=== PATIENT | male | born 1995 | race Two or more races ===

== ENCOUNTER 2017-12-18 08:00 | Day surgery (SDC) | payer OTHER ==
[~2017-12-18] VITALS: Ht 185.4 cm; Wt 124.7 kg
[2017-12-18] VITALS (9 sets, daily range): BP systolic 129–180; BP diastolic 49–90
--- NOTE | 2017-12-18 07:54 | Pre-Procedure Note/Attestation ---
Pre-Procedure Note/Attestation Complete Prior to Procedure Planned Procedure: left Procedure Narrative: knee arthroscopy acl recontruction Indications for Procedure Pre-Operative Diagnosis: letf knee acl tear Attestation I attest that I discussed the nature of the procedure; its benefits; risks and complications; and alternatives (and the risks and benefits of such alternatives ), prior to the procedure, with the patient (or the patient's legal u.s. representative). I attest that, if there was a reasonable possibility of needing a blood transfusion, the patient (or the patient's legal u.s. representative) was given the [facility] standardized written summary, pursuant to the [place] Blood Safety Act ([place] Health and Safety Code # 1645, as amended). I attest that I re-evaluated the patient just prior to the surgery and that there has been no change in the patient's H&P, except as documented below: Kevin Hinson MD December 18, 2017 07:54
--- NOTE | 2017-12-18 07:55 | Operative Note - PDOC ---
Operative Note Operative Note Pre-op Diagnosis: letf knee acl tear Procedure: left arthroscopy Post-op Diagnosis: same as pre-op plus Operative Findings: consistent w/pre-op dx studies Anesthesia: general Specimen: none Complications: none Condition: stable Estimated Blood Loss: none Implant(s) used?: Yes Kevin Hinson MD December 18, 2017 07:55
[~2017-12-18 08:00] MED LIST: NKM; ceFAZolin 1gm in D5W 55ml IVP ONE; celeBREX 100mg Cap **SURGERY PATIENTS ONLY ORAL ONE; oxyCONTIN 20mg tab ORAL ONE
[2017-12-18] MEDS ORDERED: fentaNYL 100 mcg/2 mL IV ONE (08:17)
[2017-12-18] MEDS ORDERED: Midazolam 2mg/2ml Inj ONE (08:17)
[2017-12-18] MEDS ORDERED: Propofol 200mg/20ml IV ONE ×2 (08:17→08:43)
[2017-12-18] MEDS ORDERED: Lidocaine 1% MPF 10mg/ml 5ml ONE (08:19)
[2017-12-18] MEDS ORDERED: Ropivacaine 5mg/ml Vial 30ml INJ ONE (08:21)
[2017-12-18] MEDS ORDERED: oxyCONTIN 20mg tab ORAL ONE (08:32)
[2017-12-18] MEDS ORDERED: celeBREX 100mg Cap **SURGERY PATIENTS ONLY ORAL ONE (08:32)
[2017-12-18] MEDS ORDERED: Kenalog-40 1ml Vial ONE (08:40)
[2017-12-18] MEDS ORDERED: Lidocaine 1% 10mg/ml/Epi 0.005mg/ml 30ml vial INJ ONE (08:40)
[2017-12-18] MEDS ORDERED: Ketorolac 30mg Inj ONE (08:40)
[2017-12-18] MEDS ORDERED: Bupivacaine 0.25% Inj 30ml INJ ONE (08:41)
[2017-12-18] MEDS ORDERED: Bacitracin 50000 Units Vial ONE (08:41)
[2017-12-18] MEDS ORDERED: NS Irrig 1000ml ONE (09:00)
[2017-12-18] MEDS ORDERED: NS Irrig 4000ml IRRIG ONE (09:00)
[2017-12-18] MEDS ORDERED: LR 1000ml ONE (09:00)
[2017-12-18] MEDS ORDERED: Dexamethasone 4mg/ml vial ONE (09:00)
[2017-12-18] MEDS ORDERED: EPINEPHrine 1mg/1ml Amp ONE ×2 (09:11→09:13)
[2017-12-18] MEDS ORDERED: Morphine Sulfate PF 0 ML ONE (09:12)
[2017-12-18] MEDS ORDERED: LR 1000ml 1,000 ML IVLG SCH (10:05)
--- NOTE | 2017-12-18 10:05 | Anethesia Preoperative Eval ---
Anesthesia Pre-op PMH/ROS General Date of Evaluation: December 18, 2017 Time of Evaluation: 08:50 Anesthesiologist: Kerri ASA Score: ASA 2 Mallampati Score Class I : Soft palate, uvula, fauces, pillars visible Class II: Soft palate, uvula, fauces visible Class III: Soft palate, base of uvula visible Class IV: Only hard plate visible Mallampati Classification: Class II Surgeon: Sravan Diagnosis: L knee torn ACL Surgical Procedure: Arthrocopic ACL repair Anesthesia History: none Family History: no anesthesia problems Allergies: Coded Allergies: No Known Allergies (Unverified , 12/17/17) Medications: see eMAR Past Medical History Cardiovascular: Denies: HTN, CAD, NC, valve dz, arrhythmia, other Pulmonary: Denies: asthma, COPD, KAYLA, other Gastrointestinal/Genitourinary: Reports: GERD - mild; Denies: CRI, ESRD, other Neurologic/Psychiatric: Denies: dementia, CVA, depression/anxiety, TIA, other Endocrine: Denies: DM, hypothyroidism, steroids, other HEENT: Denies: cataract (L), cataract (R), glaucoma, [place] (L), [place] (R), other Hematology/Immune: Denies: anemia, DVT, bleeding disorder, other Musculoskeletal/Integumentary: Denies: OA, RA, DJD, DDD, edema, other Other: obesity PMH Narrative: as above PSxH Narrative: none Anesthesia Pre-op Phys. Exam Physician Exam Last Vital Signs Date Time Temp Pulse Resp B/P (MAP) Pulse Ox O2 Delivery O2 Flow Rate FiO2 12/18/17 08:41 97.7 86 20 141/90 99 Room Air 97.7 Constitutional: NAD Neurologic: CN 2-12 intact Cardiovascular: RRR, no M/R/G Respiratory: CTA Gastrointestinal: S/NT/ND Airway Exam Mallampati Score: Class II MO: full Neck: flexible ROM: full Teeth: intact Dentures: no upper, no lower Anesthesia Pre-op A/P Labs see chart Studies Pre-op Studies: EKG - NSR Risk Assessment & Plan Assessment: ASA 2 Plan: GA with LMA L femoral nerve block for postop pain control Status Change Before Surgery: No Pre-Antibiotics Drug: Anef 2gr. Given Within 1 Hr of Incision: Yes Time Given: 09:52 Kevin Mijares MD December 18, 2017 10:05
[2017-12-18] MEDS ORDERED: Sodium Chloride 10ml vial INJ ONE (10:11)
[2017-12-18] MEDS ORDERED: Morphine Sulfate 10mg/ml Inj ONE (10:11)
[2017-12-18] MEDS ORDERED: DiphenhydrAMINE 50mg/ml Inj IVP PRN (10:15)
[2017-12-18] MEDS ORDERED: Meperidine 50mg/ml Inj(FOR RIGORS ONLY) IV PRN (10:15)
[2017-12-18] MEDS ORDERED: Ketorolac 30mg Inj IV PRN (10:15)
[2017-12-18] MEDS ORDERED: fentaNYL 100 mcg/2 mL IV PRN (10:15)
[2017-12-18] MEDS ORDERED: Midazolam 2mg/2ml Inj IVP PRN (10:15)
[2017-12-18] MEDS ORDERED: Metoclopramide 10mg/2ml Inj IVP PRN (10:15)
--- NOTE | 2017-12-18 11:30 | Immediate Post-Op Evaluation ---
Immediate Post-Op Evalulation Immediate Post-Op Evalulation Procedure: L knee arthroscopic ACL repair Date of Evaluation: December 18, 2017 Time of Evaluation: 11:29 IV Fluids: 1200 Blood Products: none Estimated Blood Loss: min Urinary Output: none Blood Pressure Systolic: 134 Blood Pressure Diastolic: 59 Pulse Rate: 86 Respiratory Rate: 22 O2 Sat by Pulse Oximetry: 99 Temperature (Fahrenheit): 97.9 Pain Score (1-10): 2 Nausea: No Vomiting: No Patient Status: reacts, patent, none Hydration Status: adequate Kevin Mijares MD December 18, 2017 11:30
--- NOTE | 2017-12-18 17:45 | Operative Note - Dictated ---
DATE OF OPERATION: 12/18/2017 PREOPERATIVE DIAGNOSIS: Left knee ACL tear. POSTOPERATIVE DIAGNOSIS: Left knee ACL tear. PROCEDURES: 1. Left knee arthroscopic ACL reconstruction with tibialis anterior allograft. 2. Synovectomy, lateral and patellofemoral compartment. SURGEON: Kevin Hinson M.D. ANESTHESIA: Femoral adductor with general. INDICATION FOR PROCEDURE: The patient is a pleasant gentleman who has had progressive left knee pain. He had MRI, which showed a full-thickness ACL tear. He failed conservative treatment and elected to undergo left ACL reconstruction. Risks, limitations, expectations, and complications of procedure were discussed in detail. All questions were addressed. DESCRIPTION OF PROCEDURE: After informed consent was obtained, the patient was brought to the operating room and placed supine under femoral adductor block and general anesthesia. Tourniquet was applied on the left proximal thigh. Left leg was prepped and draped in sterile manner. Time-out was performed. The tibialis anterior allograft was then prepared on the back table. Esmarch was used to exsanguinate the extremity. Inferolateral stab incision was then made. Trocar was introduced in the knee joint. There was no significant chondral damage. The patellofemoral compartment had hypertrophic synovial tissue. Medial gutter was free from loose bodies. Medial compartment was entered, the meniscus was probed, and noted to be intact. No chondral damage. Intercondylar notch was entered. There was completely empty medial wall of the lateral femoral condyle. Lateral compartment was entered and free of meniscal chondral damage. At this point, the stump remnants of the ACL was debrided. A femoral tunnel guide was then placed and the femoral tunnel was prepared. A tibial tunnel guide was then placed and tibial tunnel was prepared. At this point, the tibialis anterior allograft that was fashioned on the back table and tensioned was then passed through the tibial tunnel, intercondylar notch, femoral condyle. The fixation was secured. The tibial interference screw was then placed for tibial fixation. Camera was then repositioned in the knee joint. The knee was taken through range of motion. No abutment of the graft with any bony or soft tissues. Instruments were removed. Portal sites were closed with 3-0 Monocryl sutures. Steri-Strips and a sterile dressing were applied. The patient was awoken and taken to recovery room with stable vital signs. ESTIMATED BLOOD LOSS: None. COMPLICATIONS: None. SPECIMENS: None. IMPLANTS: Include tibialis anterior allograft, Biomet ToggleLoc Relay Suture, and a 11 x 35 interference screw. Kevin Hinson M.D. DR: Christ JOB#: [id number] CC: DONAVON
[2017-12-18] MEDS ORDERED: Norco 5mg/325mg tab ORAL PRN (18:01)
[2017-12-18] MEDS ORDERED: D5 1/2NS 1,000 ML IV SCH (18:01)
[2017-12-18] MEDS ORDERED: Tylenol #3 tab (300mg/30mg) ORAL PRN (18:01)
== END 2017-12-18 14:00 | disposition home or self-care (01) ==
LOC: SUR 08:00
DX: S83.512A Sprain of anterior cruciate ligament of left knee, initial encounter (principal); K21.9 Gastro-esophageal reflux disease without esophagitis; X58.XXXA Exposure to other specified factors, initial encounter; Y93.9 Activity, unspecified; Y92.9 Unspecified place or not applicable
CPT/HCPCS: 29876; 29888; 97161; J0171; J0690; J1100; J1885; J2250; J2270; J2405; J2704; J2795; J3010; J3490; J7120